=== PATIENT | female | born 1940 | race African-American/Black ===

== ENCOUNTER 2016-06-14 15:48 | Emergency (ER) | payer MEDICARE, OTHER ==
[2015-07-08 10:04] VITALS: BMI 32.8
[~2016-06-14 15:48] MED LIST: CADUET 5 MG/101 TAB PO; CATAPRES0.1 MG PO; COUMADIN7.5 MG PO; COZAAR25 MG OR; DOXEPIN HCL75 MG PO; ELAVIL25 MG PO; ENBREL25 MG/0.5 SQ; FLEXERIL10 MG PO; FOLIC ACID1 MG PO; IMDUR30 MG PO; ISOSORBIDE MONO30 M1 PO; K-DUR20 MEQ PO; LASIX40 MG PO; LEVOTHROID100 MCG PO; LEXAPRO20 MG PO; LIPITOR10 MG PO; LOW DOSE ASPIRI81 M1 PO; METHOTREXATE2.5 MG PO; MULTIPLE VITAMI1 TA1 PO; NORCO 10/325 TA1 TA1 PO; NORVASC5 MG PO; PLAVIX75 MG PO; PREDNISONE2.5 MG PO; ROBAXIN500 MG PO; TOPROL XL25 MG PO; TRAVATAN Z2.5 ML EACH EYE; TUMS500 MG PO; TYLENOL 325 MG325 MG PO; ULTRAM50 MG PO; VALTREX500 MG PO
[2016-06-14 19:41] LABS: BASOPHILS 0.6 % (0.0-2.0); EOSINOPHILS 2.5 % (0-7); HEMATOCRIT 36.5 % (36.0-48.0); HEMOGLOBIN 12.3 g/dL (12-16); IMMATURE GRANULOCYTES 0.2 % (0-5); LYMPHOCYTES 42.4 % (15-50); MCH 29.4 pg (26.0-34.0); MCHC 33.7 g/dL (31.0-37.0); MCV 87.3 fL (80.0-100.0); MEAN PLATELET VOLUME 10.6 fL (7.4-10.4); MONOCYTES 12.5 % (2-11); NEUTROPHILS 41.8 % (40-80); PLATELET COUNT 216 10x3/uL (130-400); RBC 4.18 10x6/uL (4.00-5.40); RDW 18.3 % (11.5-14.5); WBC 4.8 10x3/uL (4.8-10.8)
[2016-06-14 19:56] LABS: ALBUMIN 2.8 g/dL (3.4-5.0); ANION GAP 14.1 mmol/L (8-16); BILIRUBIN - TOTAL 0.43 mg/dL (0.2-1.3); CALCIUM 8.3 mg/dL (8.5-10.1); POTASSIUM - SERUM 3.1 mmol/L (3.5-5.1); PROTEIN - SERUM 6.8 g/dL (6.4-8.2)
== END 2016-06-14 21:04 | disposition home or self-care (01) ==
LOC: D.ER 15:48
PROVIDERS: Nurse Practitioner Family
DX: H57.11 Ocular pain, right eye (principal); R51 Headache; I10 Essential (primary) hypertension; M06.9 Rheumatoid arthritis, unspecified; E11.9 Type 2 diabetes mellitus without complications; Z85.3 Personal history of malignant neoplasm of breast; H40.9 Unspecified glaucoma

== ENCOUNTER → 2016-06-17 20:32 | Outpatient (CLI) | payer MEDICARE, OTHER ==
[2015-07-08 10:04] VITALS: BMI 32.8
[2016-06-17 21:04] LABS: APPEARANCE HAZY (CLEAR); BILIRUBIN NEGATIVE (NEGATIVE); COLOR YELLOW (YELLOW); GLUCOSE NEGATIVE (NEGATIVE); KETONE NEGATIVE (NEGATIVE); LEUKOCYTE ESTERASE 2+ (NEGATIVE); NITRITE NEGATIVE (NEGATIVE); PROTEIN TRACE mg/dL (NEGATIVE); UROBILINOGEN NORMAL (NORMAL); WHITE CELLS - URINE >50 /hpf (0-5)
[2016-06-17 21:05] LABS: BACTERIA MODERATE /hpf (NONE SEEN); EPITHELIAL CELLS 0-5 /hpf (0-5); RED CELLS - URINE OCC /hpf (0-5)
== END | disposition home or self-care (01) ==
LOC: D.LABREF 20:32
PROVIDERS: Family Medicine
DX: R30.0 Dysuria (principal)